=== PATIENT | female | born 1960 | race Caucasian/White ===

== ENCOUNTER → 2024-10-08 13:52 | Emergency (ER) | payer OTHER, SELFPAY ==
[2024-10-08 13:55] VITALS: BP 163/125
[2024-10-08 15:00] VITALS: BP 105/75
--- NOTE | 2024-10-08 15:06 | ED.GENMED ---
History of Present Illness
General
Chief Complaint: Extremity Pain (non-traumatic)
Source: patient and spouse
Time Seen by Provider: 10/08/24 14:53
History of Present Illness
History of Present Illness:
64-year-old female presents to the emergency room complaining of pain in her right leg and knee. Patient had an arthroscopic procedure to address a meniscal injury on September 18. Patient was told to stay on crutches for 48 hours postprocedure then she
could return to activity as tolerated. Patient states that she began ambulating initially she was doing okay but after a few days she fell like her knee was becoming more swollen and she was having pain both around the knee and down into her calf
and her thigh. She was sent for an ultrasound which was negative for DVT. However patient states she continues to have pain and swelling. Last night she describes her leg is being quite swollen about the knee and lacking definition. She denies
any fever or chills. Her left knee felt warm to her. Procedure was done by [facility] by Dr. Flores.
Phy Exam
Physical Exam
Physical Exam:
General: Awake, Alert, Oriented X3. No acute distress.
Vitals: unremarkable
Head: Atraumatic
Eyes: Pupils equal, EOMI
Throat: Airway intact, no exudates
Neck: Trachea midline
Lungs: Clear and equal b/l
Heart: Regular rate, no murmurs
Abd: Soft, Nontender, No pulsatile mass
Neuro: Nonfocal
Skin: Warm, dry, no rash
Extremities: pulses equal b/l, no edema. Mild swelling noted left knee. No erythema. Mild tenderness palpation along the posterior thigh, popliteal space and proximal calf.
Course
Orders/Labs/Results
Orders:
Orders
10/08/24 15:01
Knee, Left 4 or More Views [CR Knee - Left 4 Or More View*] Urgent
Comment:
Reason For Exam: increased pain s/p arthroscopic sx
10/08/24 15:02
US Periph Venous LOWER Ext LT Urgent
Comment:
Reason For Exam: pain, swelling s/p knee arthroscop
10/08/24 15:16
Basic Metabolic Panel Urgent
Complete Blood Count/With Diff Urgent
Abnormal Lab Results
10/08/24
15:16
MCH 31.6 H pg
(27.0-31.0)
Chloride 109 H mmol/L
(98-107)
10/08/24 15:16
10/08/24 15:16
Vital Signs
Initial and Last Documented VS:
Initial Vital Signs
Temp Pulse Resp BP Pulse Ox
97.8 F 86 15 163/125 99
10/08/24 13:55 10/08/24 13:55 10/08/24 13:55 10/08/24 13:55 10/08/24 13:55
Last Documented Vital Signs
Temp Pulse Resp BP Pulse Ox
97.8 F 77 17 114/77 97
10/08/24 13:55 10/08/24 17:30 10/08/24 17:30 10/08/24 17:30 10/08/24 17:45
MDM/Problems Addressed
Differential Diagnosis Includes:
Postoperative pain, DVT, fluid collection
MDM/Problems Addressed:
Patient presents with left knee pain and swelling. Swelling comes and goes without activity it seems. Physical exam not consistent with a septic joint. Labs are unremarkable. X-ray and DVT study are unremarkable. Discussed with Dr. Flores who
performed the patient's procedure. He patient is experiencing what he would anticipate to be normal postoperative course for someone her age. Follow-up as outpatient.
*Radiology
Radiology exam reviewed: radiology read reviewed
*Pulse Oximetry
SaO2: 99
Oxygen Mode of Delivery: Room air
Patient hypoxic: no
*Critical Care Note
Total Time (30-74mins, 75-104mins- exclusive of procedures): Not Applicable
ED Attending Note
-
Portions of this chart may have been created with voice recognition software.� Occasional wrong word or��sound alike� substitutions may have occurred due to the inherent limitations of voice recognition software.
Discharge Plan
Departure
Patient Disposition: Home (Routine Discharge)
Date of Disposition: 10/08/24
Time of Disposition: 17:46
Patient with high blood pressure during this ER visit?: Yes
Condition: Good
Discharge Problem:
Acute postoperative pain of left knee
Instructions: Knee pain - ED discharge instructions, BLOOD PRESSURE
Referrals:
Jose Martin Olivia, DO [Family Provider, Family Practice]
Activity Restrictions/Additional Instructions:
Apply ice frequently. Follow-up with Dr. Flores as scheduled. Give his office a call if any further concerns
Interventions
Interventions:
*Risk Screen - Suicide Last Done: 10/08/24 13:55
*General Assessment Last Done: 10/08/24 13:55
*Neglect/Abuse Screening Last Done: 10/08/24 13:55
*ED- Fall Risk Assessment Last Done: 10/08/24 18:43
*ED COVID-19 Vaccine History Last Done: 10/08/24 13:55
*Nursing Disposition Last Done: 10/08/24 17:45
ED-Skin Assessment Last Done: 10/08/24 18:43
ED-Musculoskeletal Assessment Last Done: 10/08/24 18:43
Discharge Date and Time
Print Language: GUINEAN
[2024-10-08 15:21] VITALS: BMI 22.8
[2024-10-08 15:23] LABS: % Basophils 0.9 % (0-2); % Eosinophils 2.7 % (0-6); % Immature Granulocytes 0.4 % (0-0.5); % Lymphocytes 27.9 % (20.5-51.1); % Monocytes 8.6 % (1.7-9.3); % Neutrophils 59.5 % (42.2-75.2); Absolute Basophils 0.1 10^3/uL (0-0.2); Absolute Eosinophils 0.2 10^3/uL (0-0.7); Absolute Lymphocytes 1.5 10^3/uL (1.2-3.4); Absolute Monocytes 0.5 10^3/uL (0.1-0.6); Absolute Neutrophils 3.3 10^3/uL (1.4-6.5); Hematocrit 38.8 % (37.0-47.0); Hemoglobin 13.6 g/dL (12.0-16.0); Mean Corp Hgb Conc. 35.1 g/dL (33.0-37.0); Mean Corpuscular Hgb 31.6 pg (27.0-31.0); Mean Corpuscular Volume 90.2 fL (81.0-99.0); Mean Platelet Volume 9.6 fL (7.4-10.4); Nucleated Red Blood Cells % 0 %; Platelet Count 246 10^3/uL (130-400); Red Cell Dist. Width 12.2 % (11.5-14.5); White Blood Cell Count 5.5 10^3/uL (4.8-10.8)
[2024-10-08 15:40] LABS: Blood Urea Nitrogen 10 mg/dl (7-17); Calcium 9.5 mg/dl (8.4-10.2); Carbon Dioxide 27 mmol/L (22-30); Chloride 109 mmol/L (98-107); Estimated Creatinine Clearance 92 ml/min; Glucose 86 mg/dl (70-99); Potassium 3.9 mmol/L (3.5-5.1); Sodium 141 mmol/L (135-145); eGFR > 60.00
[2024-10-08 17:30] VITALS: BP 114/77
== END | disposition home or self-care (01) ==
LOC: EMR 13:52
PROVIDERS: EMERGENCY PHYSICIAN Emergency Medicine; FAMILY PHYSICIAN Family Medicine
DX: G89.18 Other acute postprocedural pain (principal); M79.604 Pain in right leg
CPT/HCPCS: 99284; 73564; 80048; 85025; 93971